=== PATIENT | female | born 1960 | race Caucasian/White ===

== ENCOUNTER → 2017-01-13 | Outpatient (CLI) | payer BC, OTHER ==
[2017-01-13 10:06] LABS: BASO % 0.9 % (0.0-1.0); EOS # 0.1 K/mm3 (0.0-0.50); EOS % 2.1 % (0.0-3.0); LYMPH # 1.3 K/mm3 (1.5-4.5); LYMPH % 35.2 % (24.0-44.0); MEAN CORPUSCULAR HEMOGLOBIN 32.2 pg (27.0-33.0); MEAN CORPUSCULAR HGB CONC 33.6 g/dl (32.0-36.5); MONO # 0.2 K/mm3 (0.0-0.8); MONO % 7.3 % (0.0-5.0); NEUTROPHILS # 1.7 K/mm3 (1.8-7.7); NEUTROPHILS % 51.4 % (36.0-66.0); RED CELL DISTRIBUTION WIDTH 13.3 % (11.5-14.5); WHITE BLOOD COUNT 3.4 K/mm3 (4.0-10.0)
== END ==
LOC: M LAB 09:35
PROVIDERS: ATTEND Nurse Practitioner Adult Health
DX: D72.819 Decreased white blood cell count, unspecified (principal)

== ENCOUNTER → 2017-02-03 | Outpatient (REF) | payer BC, OTHER | LOC: M LAB REF 16:26 | PROVIDERS: ATTEND Internal Medicine Medical Oncology | DX: D72.819 Decreased white blood cell count, unspecified (principal) ==

== ENCOUNTER 2017-04-16 08:52 | Outpatient (CLI) | payer BC, OTHER ==
[~2017-04-16] VITALS: Ht 162.6 cm; Wt 70.3 kg
[~2017-04-16 08:52] MED LIST: HYDR12CA PO; IRON65TA PO; LEVO25TA5 PO; LEXA1TAB PO; NS 1,000 ML IV ONE; PROAAER10 INH; PROV100T25 PO; SING10TA32 PO; VITA200015 PO
[2017-04-16] MEDS ORDERED: LIDOCAINE 2% INJ 100 MG/5 ML SDV (FOR ANES.) As Ordered ONE (09:45)
[2017-04-16] MEDS ORDERED: PROPOFOL 200 MG/20 ML VIAL As Ordered ONE (09:45)
--- NOTE | 2017-04-16 10:04 | ROOR ---
Patient Name: Leticia Hand Procedure Date: 04/16/2017 9:43 AM Date of : 1960 Age: 56 Room: [facility] Gender: Female Note Status: Finalized Procedure: Colonoscopy Indications: Screening for colorectal malignant neoplasm Providers: Luiz STOCK MD Referring MD: DONTE ORTEGA NP Requesting Provider: Medicines: Monitored Anesthesia Care Complications: No immediate complications. Procedure: Pre-Anesthesia Assessment: - The heart rate, respiratory rate, oxygen saturations, blood pressure, adequacy of pulmonary ventilation, and response to care were monitored throughout the procedure. The Colonoscope was introduced through the anus and advanced to the cecum, identified by appendiceal orifice and ileocecal valve. The colonoscopy was performed without difficulty. The patient tolerated the procedure well. The quality of the bowel preparation was good. Findings: The perianal and digital rectal examinations were normal. Three sessile polyps were found in the splenic flexure and cecum. The polyps were 3 to 4 mm in size. These polyps were removed with a cold snare. Resection and retrieval were complete. Small Internal Hemorrhoids. The exam was otherwise without abnormality on direct and retroflexion views. Impression: - Three 3 to 4 mm polyps at the splenic flexure and in the cecum, removed with a cold snare. Resected and retrieved. - Small Internal Hemorrhoids. - The examination was otherwise normal on direct and retroflexion views. Recommendation: - Await pathology results. - Telephone endoscopist for pathology results in 2 weeks. - If the pathology report reveals adenomatous tissue, then repeat the colonoscopy for surveillance in 3 years. - If the pathology report indicates hyperplastic polyp, then repeat colonoscopy for screening purposes in 10 years. Luiz Stock MD Luiz STOCK MD 04/16/2017 10:04:34 AM This report has been signed electronically. Number of Addenda: 0 Note Initiated On: 04/16/2017 9:43 AM Estimated Blood Loss: Estimated blood loss: none.
[2017-04-16 10:30] VITALS: BP 141/85
== END 2017-04-16 10:45 | disposition home or self-care (01) ==
LOC: M OPP 08:52
PROVIDERS: ATTEND Internal Medicine Gastroenterology
DX: Z12.11 Encounter for screening for malignant neoplasm of colon (principal); D12.0 Benign neoplasm of cecum; D12.3 Benign neoplasm of transverse colon; K64.8 Other hemorrhoids; R00.8 Other abnormalities of heart beat; R60.0 Localized edema; E03.9 Hypothyroidism, unspecified; D72.819 Decreased white blood cell count, unspecified; F32.9 Major depressive disorder, single episode, unspecified; J45.909 Unspecified asthma, uncomplicated; Z98.84 Bariatric surgery status; Z79.899 Other long term (current) drug therapy; Z80.1 Family history of malignant neoplasm of trachea, bronchus and lung; Z80.8 Family history of malignant neoplasm of other organs or systems

== ENCOUNTER → 2017-05-10 | Outpatient (CLI) | payer BC, OTHER ==
[~2017-05-10] MED LIST changes: -NS 1,000 ML IV ONE
--- NOTE | 2017-05-14 09:16 | SLEEPHOME ---
DATE OF PROCEDURE: 05/12/2017 REFERRING PHYSICIAN: Roxanne Zuleta NP INTERPRETATION: Diagnostic home sleep testing was performed due to concern for the obstructive sleep apnea syndrome. For testing a NOX-T3 respiratory monitoring device was used. Continuous record was made of pulse, oxygen saturation, airflow, chest and abdominal strain, and body position. 9 hours and 59 minutes of data were reviewed. Of these, 8 hours and 21 minutes were marked as time in bed. During the interval marked time in bed, there were 87 respiratory events identified of 10 seconds in duration or greater for a respiratory event index of 10.4. The events were primarily obstructive. Baseline pulse rate 59 beats per minute. Pulse rate ranged 53 to 97. Baseline saturation 93%. Lowest oxygen saturation 86%. Testing was performed in both the supine and nonsupine positions. IMPRESSION: Abnormal home sleep testing with repetitive respiratory events and oxygen desaturations to 86% with a respiratory event index of 10.4 is consistent with obstructive sleep apnea syndrome. RECOMMENDATION: The patient should be encouraged to undergo formal sleep evaluation and in laboratory pressure titration.
== END ==
LOC: M SLEEP HO 09:00
PROVIDERS: ATTEND Nurse Practitioner Adult Health
DX: G47.30 Sleep apnea, unspecified (principal)

== ENCOUNTER → 2017-05-12 | Outpatient (CLI) | payer BC, OTHER ==
--- NOTE | 2017-05-12 20:56 | REP ---
Clinical: Trauma. Technique: AP, lateral, bilateral oblique views of the right fourth and fifth toes. Findings: There is a nondisplaced oblique fracture through the fifth toe proximal phalanx. Overlying soft tissue swelling is appreciated. No subcutaneous emphysema or radiodense foreign body. Impression: Acute nondisplaced oblique fracture of the fifth toe proximal phalanx. Signed by Timo Meeks MD 05/12/2017 08:47 P
== END ==
LOC: M RAD 18:27
PROVIDERS: ATTEND Physician Assistant Medical
DX: S92.514A Nondisplaced fracture of proximal phalanx of right lesser toe(s), initial encounter for closed fracture (principal); W22.03XA Walked into furniture, initial encounter; Y92.89 Other specified places as the place of occurrence of the external cause; Y93.89 Activity, other specified; Y99.8 Other external cause status

== ENCOUNTER → 2017-07-26 | Outpatient (CLI) | payer BC, OTHER ==
--- NOTE | 2017-07-26 10:32 | REP ---
Clinical: Right lower extremity pain. Status post laser ablation (EVLT). Technique: Real time humphries scale and color Doppler evaluation using linear high frequency transducer. Findings: Directed ultrasound examination of the right lower extremity deep venous structures from the common femoral vein to the popliteal vein demonstrates normal compressibility, flow, and wave patterns and response respiration and augmentation. There is no evidence for deep venous thrombosis. The proximal/mid greater saphenous vein appears patent. The right anterior accessory vein appears thrombosed to the level of the knee. Impression: No evidence for deep venous thrombosis to the right lower extremity. Proximal/mid greater saphenous vein appears patent. Signed by Timo Meeks MD 07/26/2017 10:24 A
== END ==
LOC: M RAD 09:35
PROVIDERS: ATTEND Surgery
DX: I83.811 Varicose veins of right lower extremity with pain (principal)

== ENCOUNTER → 2017-10-05 | Outpatient (CLI) | payer BC, OTHER | LOC: M SLEEP 20:00 | DX: G47.33 Obstructive sleep apnea (adult) (pediatric) (principal) ==

== ENCOUNTER → 2019-12-08 | Outpatient (CLI) | payer BC, OTHER | LOC: M LABSMTC 10:07 | PROVIDERS: ATTEND Family Medicine | DX: Z11.59 Encounter for screening for other viral diseases (principal); Z20.828 Contact with and (suspected) exposure to other viral communicable diseases | CPT/HCPCS: 87502; U0002 ==